=== PATIENT | male | born 1990 | race Caucasian/White ===

== ENCOUNTER → 2021-06-10 14:55 | Outpatient (CLI) | payer OTHER, SELFPAY ==
--- NOTE | 2021-06-10 15:01 | XR_ITS ---
PROCEDURE: XR CHEST 2V CLINICAL HISTORY: Abnormal CXR in past COMPARISON: No exams were available for comparison FINDINGS: Normal heart size. There is a prominent azygos lymph node measuring 3.6 x 2.3 cm. There are no previous exams available for comparison. Calcified nodes are present in the left hilum. The lungs are clear without infiltrates, suspicious nodules, or pleural effusions. No acute bony abnormalities. IMPRESSION: Evidence of old granulomatous disease with enlarged right azygos lymph node. Correlation with previous exam is needed. None are available at this institution Dictated by: Jorge Dinero MD 06/10/2021 15:33 Jorge Dinero MD in [facility] 06/10/2021 15:33
== END ==
PROVIDERS: PCP Emergency Medicine; Visit Provider Nurse Practitioner Family
DX: R93.89 Abnormal findings on diagnostic imaging of other specified body structures (principal)
CPT/HCPCS: 71046

== ENCOUNTER → 2021-06-25 07:51 | Outpatient (CLI) | payer OTHER, SELFPAY ==
--- NOTE | 2021-06-25 07:52 | CT_ITS ---
PROCEDURE: CT CHEST WO CON CLINICAL INDICATION: azygos lymph node Lymph node enlargement COMPARISON: CR XR CHEST 2V from 06/10/2021 TECHNIQUE: Axial images obtained with sagittal and coronal reformats. All CT scans at the facility use one or more dose reduction, viz: automated exposure control, ma/kV adjustment per patient size (including targeted exams where dose is matched to indication, i.e. head), or iterative reconstruction technique. FINDINGS: There is an enlarged calcified azygos lymph node which measures 3 x 3 cm. Other small calcified nodes are present in the kaylee and mediastinum. A 3 mm noncalcified nodules present in the right lower lobe. 4 mm calcified nodule is present in the left lower lobe. 4 mm calcified nodule left upper lobe. No effusions or infiltrates. Upper abdominal images show multiple small calcifications in the spleen, liver, and periportal nodes. IMPRESSION: Evidence of old granulomatous disease. No acute finding. Dictated by: Jorge Dinero MD 06/26/2021 06:26 Jorge Dinero MD in [facility] 06/26/2021 06:26
== END ==
PROVIDERS: PCP Emergency Medicine; Visit Provider Nurse Practitioner Family
DX: R93.89 Abnormal findings on diagnostic imaging of other specified body structures (principal)
CPT/HCPCS: 71250

== ENCOUNTER 2023-02-09 10:14 | Emergency (ER) | payer BC, OTHER, SELFPAY ==
[2023-02-09 12:05] VITALS: BP 119/72; PULSE 97; RESP 19; TEMP 36.8; O2SAT 98; BMI 20.2
--- NOTE | 2023-02-09 12:12 | EXP.UTC ---
Discharge Plan Disposition Patient Disposition: Home, Self-Care Condition: Good Prescriptions Prescriptions: New benzonatate 100 mg capsule 100 mg PO TID PRN (Reason: cough) Qty: 15 0RF gentamicin 0.3 % drops 1 - 2 drp ophthalmic (eye) Q4H 7 Days Qty: 5 0RF Rx Instructions: both eyes methylprednisolone [Medrol (Ezra)] 4 mg tablets,dose pack See Rx Instructions .Route .COMPLEX 6 Days Qty: 21 0RF Rx Instructions: taper pack; amoxicillin-pot clavulanate 875-125 mg Tablet 1 tab PO Q12H Qty: 20 0RF Referrals Follow up/Referrals: Provider,Referral, MD [Primary Care Provider] - See instructions Activity Restrictions/Add. Instructions Additional Instructions/Restrictions: *Monitor Temp, Over the counter Motrin or Tylenol as directed/as needed Tylenol every 4 hours and Motrin every 6 hours (as long as your family doctor has told you that you can take it) for fever or pain. and straight to ER if unable to lower temp less than 101.0 after medication given *Warm salt water gargles may help to soothe the throat *Throat Lozenges? *Warm fluids like tea with honey may help to soothe the throat? *Sleep elevated *Humidifier/Vaporizer Wash hands well before and after applying drops Use drops as Prescribed Follow up with Eye Doctor if no improvement or any worsening of symptoms in eyes Follow up IMMEDIATELY for new or worsening symptoms or no Noticeable improvement over the next 48-72 hours. 911 for difficulty breathing or swallowing Clinical Impressions Clinical Impression: Conjunctivitis Qualifiers: Conjunctivitis type: unspecified Laterality: bilateral Qualified Code(s): H10.9 - Unspecified conjunctivitis Sinusitis Qualifiers: Sinusitis location: unspecified location Chronicity: unspecified Qualified Code(s): J32.9 - Chronic sinusitis, unspecified Stand Alone Forms Stand Alone Forms: Work/School Release Instructions Patient Instructions: Sinusitis, Conjunctivitis, DI for Sinusitis, DI for Conjunctivitis Discharge ED Provider: Mari March [facility] General Stated complaint: Headache, congestion, drainage Time Seen by Provider: 02/09/23 12:12 History of Present Illness Provider Complaint: Patient states that he has been sick for about 5-7 days States that he has been having redness, irritation and drainage from both eyes, sore throat and sinus pain and pressure States that he feels like it is trying to move into his chest now and he has lost his voice States that today his sinus pressure was worse and he was having more drainage from his eyes so he came in Related Data Previous Rx's Medication Instructions Recorded amoxicillin 875 mg-potassium 1 tab PO Q12H #20 tabs 02/09/23 clavulanate 125 mg tablet benzonatate 100 mg capsule 100 mg PO TID PRN cough #15 caps 02/09/23 gentamicin 0.3 % eye drops 1 - 2 drp ophthalmic (eye) Q4H 7 02/09/23 days #5 mL methylprednisolone 4 mg tablets in See Rx Instructions .Route 02/09/23 a dose pack (Medrol (Ezra)) .COMPLEX 6 days #21 tabs Allergies Allergy/AdvReac Type Severity Reaction Status Date / Time No Known Allergies Allergy Verified 07/25/21 13:52 [facility] Disclaimer: The information contained in this section may have been updated after the patient was seen, as this information can be updated by other users. Social History Smoking Status: Never smoker alcohol intake: never substance use type: denies use current occupational status: employed Travel in the last 8 weeks: None ROS Obtained: Yes All systems reviewed & no additional complaints except as documented and Yes Systems reviewed as appropriate & no additional complaints except as documented Constitutional Constitutional: Reports system reviewed and no additional complaints, except as documented, Reports as per HPI and Reports headache(s) Eyes Eyes: Reports system reviewed and no additional complaints, except as documented, Reports
[2023-02-09 12:30] VITALS: BP 119/72; PULSE 97; RESP 19; TEMP 36.8; O2SAT 98
== END 2023-02-09 12:33 | disposition home or self-care (01) ==
PROVIDERS: Emergency Provider Nurse Practitioner
DX: H10.33 Unspecified acute conjunctivitis, bilateral (principal); J01.90 Acute sinusitis, unspecified
CPT/HCPCS: 99212; 99214; G0463

== ENCOUNTER 2023-08-29 15:31 | Emergency (ER) | payer BC, SELFPAY ==
[2023-08-29 15:33] VITALS: BP 123/77; PULSE 91; RESP 18; TEMP 36.9; O2SAT 97; BMI 21.6
--- NOTE | 2023-08-29 16:25 | EXP.UTC ---
Discharge Plan Disposition Patient Disposition: Home, Self-Care Condition: Good Prescriptions Prescriptions: New fluticasone propionate [Flonase Allergy Relief] 50 mcg/actuation spray,suspension 1 spray intranasal DAILY Qty: 16 0RF Rx Instructions: administer into each nostril Referrals Follow up/Referrals: Provider,Referral, MD [Primary Care Provider] - See instructions Activity Restrictions/Add. Instructions Additional Instructions/Restrictions: No sign of a bacterial infection. Likely viral. Viruses can take 7-14 days to run their course. Nasal saline and bulb syringe or nose Annabella to remove nasal drainage to help with nasal congestion. Hard to eat, drink, sleep with nasal congestion so important to keep this cleaned out. Monitor temp. Tylenol or Motrin as needed for pain or fever Encourage fluids, water, Gatorade, Powerade, Pedialyte if infant/toddler/child Warm salt water gargles Warm fluids Sore throat lozenges Sleep elevated Humidifier/vaporizer Follow-up immediately for new or worsening symptoms or no noticeable improvement over the next 48-72 hours. Clinical Impressions Clinical Impression: Upper respiratory infection, viral Instructions Patient Instructions: DI for Viral Upper Respiratory Infection -- Adult Discharge ED Provider: Baron ([facility] [place] General Stated complaint: sinus pressure, congestion, cough lorenz Mode of Arrival: Ambulatory Source of Information: Patient Limitations: No Limitations Time Seen by Provider: 08/29/23 16:25 Description of Symptoms (Recalled from Triage Doc. by RN): Sinus congestion and pressure, and drainage HEENT Symptoms (Recalled from RN notes): Yes Resp Symptoms (Recalled from RN notes): No Skin Symptoms (Recalled from RN notes): No MS Symptoms (Recalled from RN notes): No Functional Status (Recalled from RN notes): n/a History of Present Illness Provider Complaint: 33 yr old male presents for cough, clear nasal congestion,sinus pressure and runny nose Related Data Previous Rx's Medication Instructions Recorded fluticasone propionate 50 1 spray intranasal DAILY #16 grams 08/29/23 mcg/actuation nasal spray,suspension (Flonase Allergy Relief) Allergies Allergy/AdvReac Type Severity Reaction Status Date / Time No Known Allergies Allergy Verified 08/29/23 15:57 Worker's Comp Is this a Worker's Comp case?: No [facility] Disclaimer: The information contained in this section may have been updated after the patient was seen, as this information can be updated by other users. 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) Smoking Status: Never smoker alcohol intake: never substance use type: denies use current occupational status: employed Travel in the last 8 weeks: None ROS Obtained: Yes All systems reviewed & no additional complaints except as documented Constitutional Constitutional: Reports system reviewed and no additional complaints, except as documented and Reports as per HPI Eyes Eyes: Reports system reviewed and no additional complaints, except as documented ENT Ears, Nose, Mouth, and Throat: Reports system reviewed and no additional complaints, except as documented, Reports as per HPI, Reports nasal congestion, Reports nasal discharge, Reports post nasal drip and Reports sinus pressure Cardiovascular Cardiovascular: Reports system reviewed and no additional complaints, except as documented Respiratory Respiratory: Reports system reviewed and no additional complaints, except as documented and Reports cough Musculoskeletal Musculoskeletal: Reports system reviewed and no additional complaints, except as documented Integumentary/Breasts Skin/Breast: Reports system reviewed and no additional complaints, except as documented Endocrine Endocrine: Reports
[2023-08-29 16:39] VITALS: BP 123/77; PULSE 91; RESP 18; TEMP 36.9; O2SAT 97
[2023-08-29 16:43] LABS: Adenovirus,PCR Not Detected (NotDetected); Coronavirus 19, PCR Not Detected (NotDetected); Coronavirus 229E Not Detected (NotDetected); Coronavirus NL63 Not Detected (NotDetected); Coronavirus OC43 Not Detected (NotDetected); Coronovirus HKU1,PCR Not Detected (NotDetected); Human Metapneumovirus Not Detected (NotDetected); Influenza A, PCR Not Detected (NotDetected); Influenza AH1, 2009 Not Detected (NotDetected); Influenza AH1, PCR Not Detected (NotDetected); Influenza AH3,PCR Not Detected (NotDetected); Influenza B, PCR Not Detected (NotDetected); Parainfluenza 1, PCR Not Detected (NotDetected); Parainfluenza 2, PCR Not Detected (NotDetected); Parainfluenza 3, PCR Not Detected (NotDetected); Parainfluenza 4, PCR Not Detected (NotDetected); Respiratory Syncytial Virus Not Detected (NotDetected)
[2023-08-29 18:26] LABS: Rhinovirus/Enterovirus Detected (NotDetected)
== END 2023-08-29 16:39 | disposition home or self-care (01) ==
PROVIDERS: Emergency Provider Nurse Practitioner Family
DX: J06.9 Acute upper respiratory infection, unspecified (principal); B34.1 Enterovirus infection, unspecified
CPT/HCPCS: 87632; 87635; 99212; 99213; G0463

== ENCOUNTER 2023-11-13 12:49 | Emergency (ER) | payer BC, SELFPAY ==
[2023-11-13 13:00] VITALS: BP 123/78; PULSE 94; RESP 20; TEMP 37.5; O2SAT 96; BMI 21.6
--- NOTE | 2023-11-13 13:02 | ED_ITS ---
Discharge Plan Disposition Patient Disposition: Home, Self-Care Condition: Good Prescriptions Prescriptions: New amoxicillin [amoxicillin] 500 mg tablet 500 mg PO TID 10 Days Qty: 30 0RF benzonatate [benzonatate] 100 mg capsule 100 mg PO TIDP PRN (Reason: Cough) Qty: 30 0RF No Action fluticasone propionate [Flonase Allergy Relief] 50 mcg/actuation spray,suspension 1 spray intranasal DAILY Qty: 16 0RF Rx Instructions: administer into each nostril Referrals Follow up/Referrals: Provider,Referral, MD [Primary Care Provider] - See instructions Activity Restrictions/Add. Instructions Additional Instructions/Restrictions: Drink plenty of fluids. Take tylenol or ibuprofen for pain or fever. Take the medications as directed. Follow up with your regular doctor. GO TO THE ER FOR ANY WORSENING SYMPTOMS Clinical Impressions Clinical Impression: Pharyngitis, Acute viral syndrome Stand Alone Forms Stand Alone Forms: Work/School Release Instructions Patient Instructions: DI for Pharyngitis/Tonsillopharyngitis -- Adult, DI for Viral Syndrome Discharge ED Provider: Mahesh Chaves [facility] [place] General Stated complaint: sore throat, headache, nausea, cough Time Seen by Provider: 11/13/23 13:01 History of Present Illness Provider Complaint: He states that for the past 3 days he has had sore throat, cough, chills, and malaise. Related Data Previous Rx's Medication Instructions Recorded fluticasone propionate 50 1 spray intranasal DAILY #16 grams 08/29/23 mcg/actuation nasal spray,suspension (Flonase Allergy Relief) amoxicillin 500 mg tablet 500 mg PO TID 10 days #30 tabs 11/13/23 benzonatate 100 mg capsule 100 mg PO TIDP PRN Cough #30 caps 11/13/23 Allergies Allergy/AdvReac Type Severity Reaction Status Date / Time No Known Allergies Allergy Verified 08/29/23 15:57 [facility] Disclaimer: The information contained in this section may have been updated after the patient was seen, as this information can be updated by other users. 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) Smoking Status: Never smoker alcohol intake: never substance use type: denies use current occupational status: employed Travel in the last 8 weeks: None ROS Obtained: Yes All systems reviewed & no additional complaints except as documented Constitutional Constitutional: Reports chills and Reports fever(s) Eyes Eyes: Denies eye discharge ENT Ears, Nose, Mouth, and Throat: Reports as per HPI Cardiovascular Cardiovascular: Denies chest pain Respiratory Respiratory: Denies chest congestion and Reports cough Gastrointestinal Gastrointestingal: Reports nausea; Denies abdominal pain, constipation, cramping, diarrhea or vomiting Musculoskeletal Musculoskeletal: Denies arthralgias Integumentary/Breasts Skin/Breast: Denies rash Neurologic Neurologic: Denies paresthesias Physical Exam General General appearance: alert and in no apparent distress Head Head exam: atraumatic, normocephalic and normal inspection Eye Eye exam: Present normal appearance, PERRL and EOMI ENT ENT exam: Present mucous membranes moist and normal external ear exam Expanded ENT Exam TM/Canal exam: Bilateral TM: erythema and bulging Nose exam: Absent sinus tenderness Mouth exam: Present normal external inspection; Absent drooling Teeth exam: Present normal inspection Throat exam: Present tonsillar erythema, tonsillomegaly and tonsillar exudate Neck Neck exam: Present normal inspection, full ROM and trachea midline; Absent tenderness, meningismus or lymphadenopathy Chest Chest inspection: Present normal inspection and symmetric chest wall rise; Absent tenderness Respiratory Respiratory exam: Present normal lung sounds bilaterally; Absent respiratory distress, wheezes, stridor or accessory muscle use Cardiovascular Cardiovascular exam: Present regular rate and normal rhythm; Absent systolic murmur or diastolic murmur Abdominal Exam Abdominal exam: Present soft and normal bowel sounds; Absent distention, tenderness, guarding, rebound or rigidity Extremities Exam Extremities exam: Present normal inspection and normal capillary refill; Absent calf tenderness Back Exam Back exam: Present normal inspection and full ROM; Absent tenderness, CVA tenderness (R) or CVA tenderness (L) Neurological Exam Neurological exam: Present alert, oriented X3 and CN II-XII intact Psychiatric Psychiatric exam: Present normal affect and normal mood Skin Skin exam: Present warm, dry, intact and normal color Medical Decision Making Medical Records Medical records reviewed: No I reviewed the patient's medical records. Adis Inquiry Pt receiving controlled substance: No Lab Data Lab results reviewed: Yes I reviewed the patient's lab results.
[2023-11-13 13:08] VITALS: BP 123/78; PULSE 94; RESP 20; TEMP 37.5; O2SAT 96
[2023-11-13 13:40] LABS: UTC Influenza A Antigen Negative (Negative); UTC Influenza B Antigen Negative (Negative)
== END 2023-11-13 14:02 | disposition home or self-care (01) ==
PROVIDERS: Emergency Provider Nurse Practitioner Family
DX: U07.1 COVID-19 (principal); J02.9 Acute pharyngitis, unspecified; R51.9 Headache, unspecified; R50.9 Fever, unspecified; R05.9 Cough, unspecified; R11.0 Nausea; R53.81 Other malaise
CPT/HCPCS: 87635; 87804; 99212; 99214; G0463

== ENCOUNTER 2024-10-07 11:29 | Emergency (ER) | payer BC, SELFPAY ==
[2024-10-07 12:50] VITALS: BP 109/70; PULSE 86; RESP 21; TEMP 37; O2SAT 100
--- NOTE | 2024-10-07 12:50 | ED_ITS ---
Discharge Plan Disposition Patient Disposition: Home, Self-Care Condition: Good Prescriptions Prescriptions: New azithromycin [Zithromax] 250 mg tablet 250 mg PO UD DOSE PK Qty: 6 0RF Rx Instructions: Take two (2) tablets today, then one (1) tablet days #2 thru #5 methylprednisolone 4 mg Tablets,Dose Pack 4 mg PO DIRECTED 6 Days Qty: 21 0RF Rx Instructions: Take 1 pack as directed for 6 days [id number] [Bromfed DM] 2-30-10 mg/5 mL Syrup 5 ml PO Q6H PRN (Reason: Cough) Qty: 240 0RF Referrals Follow up/Referrals: Provider,Referral, MD [Primary Care Provider] - See instructions Activity Restrictions/Add. Instructions Additional Instructions/Restrictions: Drink plenty of fluids. Take tylenol or ibuprofen for pain or fever. Take the medications as directed. Follow up with your regular doctor. GO TO THE ER FOR ANY WORSENING SYMPTOMS Clinical Impressions Clinical Impression: Bronchitis Sinusitis Qualifiers: Sinusitis location: unspecified location Chronicity: unspecified Qualified Code(s): J32.9 - Chronic sinusitis, unspecified Stand Alone Forms Stand Alone Forms: Work/School Release Instructions Patient Instructions: Sinusitis, DI for Sinusitis Print Language Print Language: Latvian Discharge ED Provider: Mahesh Chaves [facility] [place] General Stated complaint: sinus pressure, drainage Time Seen by Provider: 10/07/24 12:50 Related Data Previous Rx's ?Medication ?Instructions ?Recorded azithromycin 250 mg tablet 250 mg PO UD DOSE PK #6 tabs 10/07/24 (Zithromax) qhrqnilyuyvfkce-[id number] 5 ml PO Q6H PRN Cough #240 mL 10/07/24 2 mg-30 mg-10 mg/5 mL oral syrup (Bromfed DM) methylprednisolone 4 mg tablets in 4 mg PO DIRECTED 6 days #21 tabs 10/07/24 a dose pack Allergies Allergy/AdvReac Type Severity Reaction Status Date / Time No Known Allergies Allergy Verified 08/29/23 15:57 [facility] Disclaimer: The information contained in this section may have been updated after the patient was seen, as this information can be updated by other users. 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) Smoking Status: Never smoker alcohol intake: never substance use type: denies use current occupational status: employed Travel in the last 8 weeks: None ROS Obtained: Yes All systems reviewed & no additional complaints except as documented Constitutional Constitutional: Reports poor appetite Eyes Eyes: Reports system reviewed and no additional complaints, except as documented ENT Ears, Nose, Mouth, and Throat: Reports as per HPI Cardiovascular Cardiovascular: Reports system reviewed and no additional complaints, except as documented and Denies chest pain Respiratory Respiratory: Denies shortness of breath, Reports chest congestion, Reports cough, Denies stridor and Denies wheezing Gastrointestinal Gastrointestingal: Reports system reviewed and no additional complaints, except as documented; Denies abdominal pain, diarrhea or vomiting Musculoskeletal Musculoskeletal: Reports system reviewed and no additional complaints, except as documented and Denies arthralgias Integumentary/Breasts Skin/Breast: Reports system reviewed and no additional complaints, except as documented and Denies rash Neurologic Neurologic: Denies paresthesias Allergic/Immunologic Allergic/Immunologic: Denies wheezing Physical Exam General General appearance: alert and in no apparent distress Eye Eye exam: Present normal appearance, PERRL and EOMI ENT ENT exam: Present mucous membranes moist and normal external ear exam Expanded ENT Exam External ear exam: Present normal external inspection TM/Canal exam: Bilateral TM: erythema and bulging Nose exam: Absent sinus tenderness Nasal speculum exam: Bilateral: normal Mouth exam: Present normal external inspection; Absent drooling Teeth exam: Present normal inspection Throat exam: Present tonsillar erythema and tonsillomegaly Neck Neck exam: Present normal inspection, full ROM and trachea midline; Absent tenderness, lymphadenopathy or thyromegaly Chest Chest inspection: Present normal inspection and symmetric chest wall rise; Absent tenderness or rash Respiratory Respiratory exam: Present normal lung sounds bilaterally; Absent respiratory distress, wheezes, stridor or accessory muscle use Cardiovascular Cardiovascular exam: Present regular rate, normal rhythm and normal heart sounds Abdominal Exam Abdominal exam: Present soft; Absent distention, tenderness, guarding, rebound or rigidity Extremities Exam Extremities exam: Present normal inspection, full ROM and normal capillary refill; Absent tenderness or calf tenderness Back Exam Back exam: Present normal inspection and full ROM; Absent tenderness Neurological Exam Neurological exam: Present alert and oriented X3 Psychiatric Psychiatric exam: Present normal affect and normal mood Skin Skin exam: Present warm, dry, intact and normal color Lymphatic Lymphatic Findings: no adenopathy Medical Decision Making Medical Records Medical records reviewed: No I reviewed the patient's medical records. Screening: Per USPSTF and CDC recommendations, given the prevalence of disease in our region, it is our hospital?s policy to screen for HIV and viral Hepatitis for all patients aged 18 and over and those with ongoing risk factors. Adis Inquiry Pt receiving controlled substance: No Lab Data Lab results reviewed: Yes I reviewed the patient's lab results.
[2024-10-07 13:02] LABS: UTC Strep Screen (Rapid) Negative (Negative)
[2024-10-07 13:41] VITALS: BP 109/70; PULSE 86; RESP 21; TEMP 37
== END 2024-10-07 13:43 | disposition home or self-care (01) ==
PROVIDERS: Emergency Provider Nurse Practitioner Family
DX: J20.9 Acute bronchitis, unspecified (principal); J32.9 Chronic sinusitis, unspecified; R05.9 Cough, unspecified; R09.89 Other specified symptoms and signs involving the circulatory and respiratory systems; R63.8 Other symptoms and signs concerning food and fluid intake
CPT/HCPCS: 87880; 99212; G0381

== ENCOUNTER 2024-10-22 10:04 | Emergency (ER) | payer BC, SELFPAY ==
[2024-10-22 11:00] VITALS: BP 97/44; PULSE 70; RESP 19; TEMP 36.9; O2SAT 98; BMI 22.0
--- NOTE | 2024-10-22 11:09 | ED_ITS ---
Discharge Plan Disposition Patient Disposition: Home, Self-Care Condition: Good Prescriptions Prescriptions: New wyfebirjcwiwqxf-qsdrryrlk-NS [Bromfed DM] 2-30-10 mg/5 mL syrup 10 ml PO Q6H PRN (Reason: cold symptoms) 3 Days Qty: 118 0RF No Action azithromycin [Zithromax] 250 mg tablet 250 mg PO UD DOSE PK Qty: 6 0RF Rx Instructions: Take two (2) tablets today, then one (1) tablet days #2 thru #5 methylprednisolone 4 mg Tablets,Dose Pack 4 mg PO DIRECTED 6 Days Qty: 21 0RF Rx Instructions: Take 1 pack as directed for 6 days chnvabdppuaaxeh-ocboyoxaq-YE [Bromfed DM] 2-30-10 mg/5 mL Syrup 5 ml PO Q6H PRN (Reason: Cough) Qty: 240 0RF Referrals Follow up/Referrals: Provider,Referral, MD [Primary Care Provider] - See instructions Activity Restrictions/Add. Instructions Additional Instructions/Restrictions: No sign of a bacterial infection. Likely viral. Viruses can take 7-14 days to run their course. Nasal saline and bulb syringe or nose Annabella to remove nasal drainage to help wi th nasal congestion. Hard to eat, drink, sleep with nasal congestion so important to keep this cleaned out. Monitor temp. Tylenol or Motrin as needed for pain or fever Encourage fluids, water, Gatorade, Powerade, Pedialyte if /toddler/child Warm salt water gargles Warm fluids Sore throat lozenges Sleep elevated Humidifier/vaporizer Follow-up immediately for new or worsening symptoms or no noticeable improvement over the next 48-72 hours. Clinical Impressions Clinical Impression: Upper respiratory infection, viral Instructions Patient Instructions: DI for Viral Upper Respiratory Infection -- Adult Print Language Print Language: Albanian Discharge ED Provider: Baron ([facility] [place] HPI General Stated complaint: sore throat, cough, congestion, H/A Mode of Arrival: Ambulatory Source of Information: Patient Limitations: No Limitations Time Seen by Provider: 10/22/24 11:04 HEENT Symptoms (Recalled from RN notes): Yes Resp Symptoms (Recalled from RN notes): Yes Skin Symptoms (Recalled from RN notes): No GI/ Symptoms (Recalled from RN notes): No History of Present Illness Provider Complaint: 34-year-old male presents for nasal congestion, cough, clear drainage, sinus tenderness and pressure for 1 week. Related Data Previous Rx's ?Medication ?Instructions ?Recorded azithromycin 250 mg tablet 250 mg PO UD DOSE PK #6 tabs 10/07/24 (Zithromax) sffgnblrectrzaz-rxrusdzuafhauuo-DT 5 ml PO Q6H PRN Cough #240 mL 10/07/24 2 mg-30 mg-10 mg/5 mL oral syrup (Bromfed DM) methylprednisolone 4 mg tablets in 4 mg PO DIRECTED 6 days #21 tabs 10/07/24 a dose pack graglsylkalgvdd-tuwzabnzqbfenuh-QK 10 ml PO Q6H PRN cold symptoms 3 10/22/24 2 mg-30 mg-10 mg/5 mL oral syrup days #118 mL (Bromfed DM) Allergies Allergy/AdvReac Type Severity Reaction Status Date / Time No Known Allergies Allergy Ver[facility]23 [facility] Dis[facility]: The information contained in this section may have been updated after the patient was seen, as this information can be updated by other users. 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 , [employer]) Hilar lymphadenopathy Mediastinal lymphadenopathy Social History , [employer]) Smoking Status: Never smoker alcohol intake: never substance use type: denies use current occupational status: employed Travel in the last 8 weeks: None Have you lived/traveled outside [place] in past 30 days?: No Contact w/someone who lives/traveled outside [place] past 30 days?: No Exposure to someone with infectious disease in past 14 days?: No Do you have a fever (greater than 100.4 F or 38 C)?: No Have you tested positive for COVID-19: No Exposed to someone with COVID-19 in past 14 days?: No Do you have a sore throat?: Yes Do you have a cough?: Yes Do you have any weakness?: No Do you have any diarrhea?: No Are you experiencing any unusual bleeding?: No Do you have any muscle aches/pain?: No Do you have any abdominal pain?: No Are you experiencing loss of taste or smell?: No ROS Obtained: Yes Systems reviewed as appropriate & no additional complaints except as documented Physical Exam General General appearance: alert and in no apparent distress Eye Eye exam: Present normal appearance ENT ENT exam: Present mucous membranes moist and TM's normal bilaterally Expanded ENT Exam Nose exam: Present sinus tenderness (Maxillary) Respiratory Respiratory exam: Present normal lung sounds bilaterally Cardiovascular Cardiovascular exam: Present regular rate and normal rhythm Neurological Exam Neurological exam: Present alert and oriented X3 Skin Skin exam: Present warm and intact Medical Decision Making Medical Records Medical records reviewed: Yes I reviewed the patient's medical records. Screening: Per USPSTF and CDC recommendations, given the prevalence of disease in our region, it is our hospital?s policy to screen for HIV and viral Hepatitis for all patients aged 18 and over and those with ongoing risk factors. Adis Inquiry Pt receiving controlled substance: No
[2024-10-22 11:22] LABS: UTC Influenza A Antigen Negative (Negative); UTC Influenza B Antigen Negative (Negative)
[2024-10-22 11:23] VITALS: BP 97/44; PULSE 70; RESP 19; TEMP 36.9; O2SAT 98
== END 2024-10-22 11:25 | disposition home or self-care (01) ==
PROVIDERS: Emergency Provider Nurse Practitioner Family
DX: J06.9 Acute upper respiratory infection, unspecified (principal)
CPT/HCPCS: 87804; 99213; G0381